=== PATIENT | female | born 1995 | race Caucasian/White ===

== ENCOUNTER 2019-06-16 05:55 | Inpatient (IN) ==
[2019-06-16 07:44] LABS: Basophils # 0.1 10*3/uL (0.0-0.2); Basophils % 0.5 % (0.0-0.8); Eosinophils # 0.1 10*3/uL (0.0-0.87); Eosinophils % 0.8 % (0.00-10.9); Hematocrit 31.9 VOL% (35.7-47.0); Hemoglobin 9.8 GM/DL (12.0-16.0); Immature Granulocytes % 1.2 %; Immature Granulocytes Absolute 0.11 #; Lymphocytes # 1.8 10*3/uL (1.4-4.0); Mean Corpuscular HGB Conc 30.7 GM/DL (32-36); Mean Corpuscular Volume 75.6 FL (87-102); Mean Platelet Volume 9.8 FL (9.6-12.0); Monocytes % 5.7 % (1.7-12.7); Neutrophils % 72.8 % (38.7-73.9); Platelet Count 261 T/CUMM (130-400); Red Blood Count 4.22 MC/CUMM (3.8-5.5); Red Cell Distribution Width 16.1 % (9.3-17.3); White Blood Count 9.3 T/CUMM (4-12)
[2019-06-16] MEDS ORDERED: OXYTOCIN/D5LR 20 UNIT/1,000 ML PREMIX IV SCH ×2 (08:30→09:00)
[2019-06-16] MEDS: OXYTOCIN/LR 20 UNIT/1,000 ML BAG IV SCH (08:57)
[2019-06-16] MEDS ORDERED: AMPICILLIN INJ 2,000 MG in SODIUM CHLORIDE 0.9% 100 ML IV ONE (09:00)
[2019-06-16] MEDS: BUTORPHANOL 2 MG/ML VIAL IV PRN ×2 (12:50→16:02)
[2019-06-16] MEDS: AMPICILLIN INJ 1,000 MG in SODIUM CHLORIDE 0.9% 100 ML IV SCH ×3 (12:51→21:13)
[2019-06-16] MEDS: LACTATED RINGERS 1,000 ML IV SCH ×2 (14:25→23:25)
[2019-06-16] MEDS ORDERED: FAMOTIDINE 20 MG/2 ML VIAL IV ONE (18:01)
[2019-06-16] MEDS ORDERED: NALOXONE 0.4 MG/ML VIAL IV PRN (18:01)
[2019-06-16] MEDS ORDERED: hydrOXYzine HCL 25 MG/1 ML VIAL IM PRN (18:01)
[2019-06-16] MEDS ORDERED: PROMETHAZINE 25 MG/1 ML VIAL IM ONE (18:01)
[2019-06-16] MEDS ORDERED: ePHEDrine 50 MG/ML AMP IV PRN (18:01)
[2019-06-16] MEDS ORDERED: diphenhydrAMINE 50 MG/1 ML VIAL IV PRN ×2 (18:01)
[2019-06-16] MEDS ORDERED: ONDANSETRON 4 MG/2 ML VIAL IV ONE (18:01)
[2019-06-16] MEDS ORDERED: CITRIC ACID/SODIUM CITRATE 30 ML UDCUP PO ONE (18:01)
[2019-06-16] MEDS ORDERED: LACTATED RINGERS 1,000 ML IV ONE (18:01)
[2019-06-16] MEDS ORDERED: LACTATED RINGERS 1,000 ML IV SCH (18:30)
[2019-06-16] MEDS: ONDANSETRON 4 MG/2 ML VIAL IV PRN (20:22)
[2019-06-17] MEDS: fentaNYL 2 MCG/ROPIV 0.2% EPID 100 ML EPIDURAL SCH ×2 (01:27→06:31)
[2019-06-17] MEDS: AMPICILLIN INJ 1,000 MG in SODIUM CHLORIDE 0.9% 100 ML IV SCH ×2 (01:40→05:44)
[2019-06-17] MEDS ORDERED: miSOPROStoL 200 MCG TABLET ONE (03:55)
[2019-06-17] MEDS ORDERED: LIDOCAINE 1% 50 ML VIAL ONE (03:55)
[2019-06-17] MEDS ORDERED: METHYLERGONOVINE 0.2 MG/1 ML AMP ONE (03:55)
[2019-06-17] MEDS: OXYTOCIN/LR 20 UNIT/1,000 ML BAG IV SCH (04:48)
[2019-06-17] MEDS ORDERED: ceFAZolin 3,000 MG in SYRINGE 1 EACH IV ONE (08:03)
[2019-06-17] MEDS ORDERED: SIMETHICONE CHEW 80 MG TABLET PO PRN (09:05)
[2019-06-17] MEDS ORDERED: ACETAMINOPHEN 325 MG TABLET PO PRN (09:05)
[2019-06-17] MEDS ORDERED: fentaNYL 100 MCG/2 ML VIAL ONE (09:09)
[2019-06-17] MEDS ORDERED: KETOROLAC 60 MG/2 ML VIAL IM ONE (09:09)
[2019-06-17] MEDS ORDERED: MORPHINE 10 MG/10 ML VIAL ONE (09:10)
[2019-06-17] MEDS ORDERED: BUPIVACAINE SPINAL 0.75% 2 ML AMP SPINAL ONE (09:11)
[2019-06-17] MEDS ORDERED: LIDOCAINE MPF 2% /EPI 20 ML VIAL ONE (09:12)
[2019-06-17] MEDS ORDERED: LACTATED RINGERS 1,000 ML IV SCH (09:30)
[2019-06-17] MEDS ORDERED: SODIUM BICARBONATE 2.4 MEQ/5 ML VIAL ONE (09:34)
[2019-06-17] MEDS ORDERED: PHENYLEPHRINE 1 MG/10 ML SYRINGE IV ONE (09:34)
[2019-06-17] MEDS ORDERED: HYDROmorphone 2 MG/1 ML VIAL IV PRN (09:38)
[2019-06-17] MEDS: ONDANSETRON 4 MG/2 ML VIAL IV PRN (11:54)
[2019-06-17] MEDS ORDERED: SODIUM BICARBONATE 10 MEQ/10 ML SYRINGE IV ONE (14:35)
[2019-06-17] MEDS: KETOROLAC 30 MG/1 ML VIAL IV SCH ×2 (15:25→21:12)
[2019-06-17] MEDS: ceFAZolin 1,000 MG in SYRINGE 1 EACH IV SCH (15:29)
[2019-06-17 17:24] LABS: Basophils % 0.2 % (0.0-0.8); Eosinophils % 0.2 % (0.00-10.9); Hematocrit 25.4 VOL% (35.7-47.0); Hemoglobin 7.7 GM/DL (12.0-16.0); Immature Granulocytes % 0.7 %; Immature Granulocytes Absolute 0.09 #; Lymphocytes # 1.6 10*3/uL (1.4-4.0); Lymphocytes % 12.2 % (21.3-54.2); Mean Corpuscular HGB Conc 30.3 GM/DL (32-36); Mean Corpuscular Volume 75.4 FL (87-102); Mean Platelet Volume 9.7 FL (9.6-12.0); Monocytes % 8.2 % (1.7-12.7); Neutrophils % 78.5 % (38.7-73.9); Platelet Count 225 T/CUMM (130-400); Red Blood Count 3.37 MC/CUMM (3.8-5.5); Red Cell Distribution Width 16.1 % (9.3-17.3); White Blood Count 12.9 T/CUMM (4-12)
[2019-06-17] MEDS: oxyCODONE/ACETAMINOPHEN 5-325 MG TABLET PO PRN (18:06)
[2019-06-17] MEDS: FERROUS SULFATE 325 MG TABLET PO SCH (21:16)
[2019-06-18] MEDS: ceFAZolin 1,000 MG in SYRINGE 1 EACH IV SCH (00:15)
[2019-06-18] MEDS: KETOROLAC 30 MG/1 ML VIAL IV SCH ×4 (03:30→23:45)
[2019-06-18 06:39] LABS: Basophils % 0.3 % (0.0-0.8); Eosinophils # 0.1 10*3/uL (0.0-0.87); Eosinophils % 0.6 % (0.00-10.9); Hematocrit 21.8 VOL% (35.7-47.0); Hemoglobin 6.7 GM/DL (12.0-16.0); Immature Granulocytes % 0.9 %; Lymphocytes # 1.5 10*3/uL (1.4-4.0); Lymphocytes % 13.2 % (21.3-54.2); Mean Corpuscular HGB Conc 30.7 GM/DL (32-36); Mean Corpuscular Volume 76.2 FL (87-102); Mean Platelet Volume 9.2 FL (9.6-12.0); Monocytes % 7.3 % (1.7-12.7); Neutrophils % 77.7 % (38.7-73.9); Platelet Count 196 T/CUMM (130-400); Red Blood Count 2.86 MC/CUMM (3.8-5.5); Red Cell Distribution Width 16.4 % (9.3-17.3); White Blood Count 11.6 T/CUMM (4-12)
[2019-06-18] MEDS: oxyCODONE/ACETAMINOPHEN 5-325 MG TABLET PO PRN ×3 (07:33→19:54)
[2019-06-18] MEDS ORDERED: SODIUM CHLORIDE 0.9% 1,000 ML IV PRN ×2 (08:28→11:10)
[2019-06-18] MEDS: FERROUS SULFATE 325 MG TABLET PO SCH ×3 (09:15→22:13)
[2019-06-18] MEDS: DOCUSATE SODIUM 100 MG CAPSULE PO SCH ×2 (09:15→21:05)
[2019-06-18] MEDS: MULTIVITAMIN (PRENATAL) TABLET PO SCH (09:15)
[2019-06-18] MEDS: MAGNESIUM HYDROXIDE SUSP 30 ML UDCUP PO PRN (09:55)
[2019-06-18 10:17] LABS: Hematocrit 21.7 VOL% (35.7-47.0); Hemoglobin 6.6 GM/DL (12.0-16.0)
[2019-06-18] MEDS: IBUPROFEN 800 MG TABLET PO PRN (15:59)
[2019-06-18] MEDS: SILVER SULFADIAZINE 1% CREAM 25 GM TUBE TOP SCH (22:13)
[2019-06-18 22:40] LABS: Basophils # 0.1 10*3/uL (0.0-0.2); Basophils % 0.4 % (0.0-0.8); Eosinophils # 0.2 10*3/uL (0.0-0.87); Eosinophils % 1.1 % (0.00-10.9); Hematocrit 27.9 VOL% (35.7-47.0); Hemoglobin 8.7 GM/DL (12.0-16.0); Immature Granulocytes % 1.4 %; Lymphocytes # 2.3 10*3/uL (1.4-4.0); Lymphocytes % 16.4 % (21.3-54.2); Mean Corpuscular HGB Conc 31.2 GM/DL (32-36); Mean Corpuscular Volume 79.3 FL (87-102); Mean Platelet Volume 9.6 FL (9.6-12.0); Monocytes % 7.2 % (1.7-12.7); Neutrophils % 73.5 % (38.7-73.9); Platelet Count 240 T/CUMM (130-400); Red Blood Count 3.52 MC/CUMM (3.8-5.5); Red Cell Distribution Width 17.2 % (9.3-17.3); White Blood Count 14.2 T/CUMM (4-12)
[2019-06-19] MEDS: oxyCODONE/ACETAMINOPHEN 5-325 MG TABLET PO PRN ×4 (01:30→23:53)
[2019-06-19] MEDS: KETOROLAC 30 MG/1 ML VIAL IV SCH ×2 (04:15→08:00)
[2019-06-19] MEDS: DOCUSATE SODIUM 100 MG CAPSULE PO SCH ×2 (09:37→21:08)
[2019-06-19] MEDS: FERROUS SULFATE 325 MG TABLET PO SCH ×3 (09:37→21:08)
[2019-06-19] MEDS: MULTIVITAMIN (PRENATAL) TABLET PO SCH (09:38)
[2019-06-19] MEDS: MAGNESIUM HYDROXIDE SUSP 30 ML UDCUP PO PRN ×2 (11:08→21:07)
[2019-06-19] MEDS: SILVER SULFADIAZINE 1% CREAM 25 GM TUBE TOP SCH ×2 (13:50→22:10)
[2019-06-19] MEDS: IBUPROFEN 800 MG TABLET PO PRN ×2 (14:04→23:55)
[2019-06-19] MEDS ORDERED: diphenhydrAMINE CAP 25 MG CAPSULE PO PRN (21:01)
[2019-06-19] MEDS ORDERED: BISACODYL 10 MG SUPP RECTAL PRN (23:34)
[2019-06-20] MEDS: oxyCODONE/ACETAMINOPHEN 5-325 MG TABLET PO PRN (05:34)
[2019-06-20] MEDS: SILVER SULFADIAZINE 1% CREAM 25 GM TUBE TOP SCH (09:30)
[2019-06-20] MEDS: DOCUSATE SODIUM 100 MG CAPSULE PO SCH (09:35)
[2019-06-20] MEDS: FERROUS SULFATE 325 MG TABLET PO SCH ×2 (09:35→10:50)
[2019-06-20] MEDS: IBUPROFEN 800 MG TABLET PO PRN (09:35)
[2019-06-20] MEDS: MULTIVITAMIN (PRENATAL) TABLET PO SCH (09:35)
[2019-06-20 12:00] VITALS: BP 125/78
[2019-06-20] MEDS ORDERED: INFLUENZA VIRUS VACCINE 0.5 ML SYRINGE IM ONE (12:42)
== END 2019-06-20 14:15 | disposition home or self-care (01) | DRG 540 ==
LOC: N.LDOUT 05:55 → N.LD 05:56 → N.OB 06-17 12:26
PROVIDERS: ADMIT Obstetrics & Gynecology; ATTEND Obstetrics & Gynecology
PROC: LDCSECT (ICD-10-PCS; 2019-06-17 07:30)